=== PATIENT | male | born 2000 | race Caucasian/White ===

== ENCOUNTER 2020-03-29 22:45 | Emergency (ER) | payer OTHER ==
[2020-03-29 22:54] VITALS: BP 145/91; PULSE 84; TEMP 98.7; BMI 27.1
== END 2020-03-30 00:06 | disposition home or self-care (01) ==
LOC: FER 22:45 → SUPCPDRO 22:45 → FER 03-30 00:06
DX: S60.511A Abrasion of right hand, initial encounter (principal)
CPT/HCPCS: 99282-25

== ENCOUNTER 2021-04-03 21:06 | Emergency (ER) | payer OTHER ==
[2021-04-03] MEDS ORDERED: IBUPROFEN 600 MG TABLET (FP) PO ONE ×3 (21:15→21:26)
[2021-04-03 21:25] VITALS: BP 135/85; PULSE 90; TEMP 99; BMI 27.1
== END 2021-04-03 22:01 | disposition home or self-care (01) ==
LOC: FER 21:06
DX: S83.521A Sprain of posterior cruciate ligament of right knee, initial encounter (principal); Y99.8 Other external cause status
CPT/HCPCS: 73560-TC-RT-FY; 99283-25

== ENCOUNTER 2021-05-19 00:07 | Emergency (ER) | payer OTHER ==
[2021-05-19] MEDS ORDERED: DIPHTH,PERTUSS(ACELL),TET 0.5 ML DISP.SYRIN IM ONE ×2 (00:14→00:27)
[2021-05-19 00:16] VITALS: BP 146/90; PULSE 102; TEMP 98.5; BMI 27.8
== END 2021-05-19 00:41 | disposition home or self-care (01) ==
LOC: FER 00:07
PROC: 3E0234Z Introduction of Serum, Toxoid and Vaccine into Muscle, Percutaneous Approach (ICD-10-PCS; principal; 2021-05-19)
DX: S60.511A Abrasion of right hand, initial encounter (principal); M25.562 Pain in left knee
CPT/HCPCS: 73130-TC-RT-FY; 73562-TC-LT-FY; 90715; 99284-25

== ENCOUNTER 2022-01-14 18:55 | Emergency (ER) | payer OTHER ==
[2022-01-14 19:02] VITALS: BP 109/55; PULSE 75; RESP 16; TEMP 98.2; BMI 27.8
== END 2022-01-14 19:18 | disposition home or self-care (01) ==
LOC: FER 18:55
DX: S86.912A Strain of unspecified muscle(s) and tendon(s) at lower leg level, left leg, initial encounter (principal); X50.0XXA Overexertion from strenuous movement or load, initial encounter
CPT/HCPCS: 99281-25

== ENCOUNTER 2022-05-05 17:20 | Emergency (ER) | payer OTHER ==
[2022-05-05 17:27] VITALS: BP 102/67; PULSE 95; RESP 18; TEMP 99; BMI 27.8
== END 2022-05-05 18:56 | disposition home or self-care (01) ==
LOC: FER 17:20
DX: S60.511A Abrasion of right hand, initial encounter (principal); Y04.8XXA Assault by other bodily force, initial encounter
CPT/HCPCS: 73130-TC-RT-FY; 99283-25

== ENCOUNTER 2022-09-08 22:47 | Emergency (ER) | payer OTHER ==
[2022-09-08 22:52] VITALS: BP 119/77; PULSE 94; RESP 18; TEMP 98.3; BMI 27.8
== END 2022-09-09 00:27 | disposition home or self-care (01) ==
LOC: JER 22:47
DX: S41.011A Laceration without foreign body of right shoulder, initial encounter (principal); W22.8XXA Striking against or struck by other objects, initial encounter; Y93.02 Activity, running
CPT/HCPCS: 73000-TC-RT-FY; 73562-TC-RT-FY; 99284-25

== ENCOUNTER 2023-01-17 22:01 | Emergency (ER) | payer OTHER ==
[2023-01-17 22:06] VITALS: BP 127/84; PULSE 92; RESP 18; TEMP 98.4; BMI 27.1
[2023-01-17] MEDS ORDERED: DIPHTH,PERTUSS(ACELL),TET 0.5 ML DISP.SYRIN IM ONE (23:31)
[2023-01-17] MEDS ORDERED: CEPHALEXIN MONOHYDRATE 500 MG CAPSULE (UD) ONE (23:31)
[2023-01-17] MEDS ORDERED: CEPHALEXIN MONOHYDRATE 500 MG CAPSULE (UD) PO ONE (23:46)
== END 2023-01-17 23:48 | disposition home or self-care (01) ==
LOC: JER 22:01 → JERFT 22:01
PROC: 0HQFXZZ Repair Right Hand Skin, External Approach (ICD-10-PCS; principal; 2023-01-17)
DX: S61.511A Laceration without foreign body of right wrist, initial encounter (principal); W26.8XXA Contact with other sharp object(s), not elsewhere classified, initial encounter
CPT/HCPCS: 99283-25

== ENCOUNTER 2023-08-16 04:20 | Day surgery (SDC) | payer OTHER ==
[2023-08-14 10:56] VITALS: BMI 27.3
[2023-08-16] MEDS ORDERED: ONDANSETRON 4 MG/2 ML VIAL IVPUSH PRN (16:55)
[2023-08-16] MEDS ORDERED: SUCCINYLCHOLINE CHLORIDE 200 MG/10 ML SYRINGE ONE (16:57)
[2023-08-16] MEDS ORDERED: PROPOFOL 20 ML ONE ×2 (16:57→17:23)
[2023-08-16] MEDS ORDERED: FENTANYL CITRATE/PF 50 MCG/ML VIAL ONE (16:57)
[2023-08-16] MEDS ORDERED: MIDAZOLAM HCL 2 MG/2 ML SINGLE DOSE VIAL ONE (16:58)
[2023-08-16] MEDS: ceFAZolin SODIUM 1 GM VIAL IVPB ONE (17:20)
[2023-08-16] MEDS ORDERED: LIDOCAINE HCL 2% JELLY 11 ML TP ONE (17:33)
[2023-08-16] MEDS: LIDOCAINE HCL 2% JELLY 10 ML CARTRIDGE TP ONE (17:34)
[2023-08-16 18:16] VITALS: TEMP 97.8
[2023-08-16] MEDS: oxyCODONE HCL 5 MG TABLET PO PRN (18:25)
[2023-08-16] MEDS ORDERED: oxyCODONE HCL 5 MG TABLET ONE (18:26)
[2023-08-16 19:06] VITALS: RESP 20
[2023-08-16 19:09] VITALS: BP 125/71; PULSE 61
== END 2023-08-16 18:57 | disposition home or self-care (01) ==
LOC: JASU-SURG 04:20
PROVIDERS: ATTEND Urology
PROC: 0T7D8ZZ Dilation of Urethra, Via Natural or Artificial Opening Endoscopic (ICD-10-PCS; principal; 2023-08-16 17:00)
DX: N35.911 Unspecified urethral stricture, male, meatal (principal); N35.812 Other bulbous urethral stricture, male
CPT/HCPCS: 94760

== ENCOUNTER 2024-06-04 16:43 | Emergency (ER) | payer OTHER ==
[2024-06-04 16:51] VITALS: BP 129/81; PULSE 83; RESP 18; TEMP 97.7; BMI 27.1
== END 2024-06-04 17:45 | disposition home or self-care (01) ==
LOC: FER 16:43
DX: S71.151A Open bite, right thigh, initial encounter (principal); W54.0XXA Bitten by dog, initial encounter
CPT/HCPCS: 99283-25